=== PATIENT | male | born 1985 | race Caucasian/White ===

== ENCOUNTER 2016-08-29 10:50 | Inpatient (IN) | payer OTHER ==
[~2016-08-29] VITALS: Ht 185.4 cm; Wt 94.3 kg
--- NOTE | ~2016-08-29 | EKG ---
[place], [place] ELECTROCARDIOGRAM REPORT NAME: MAICO ELLIS UNIT #: [id number] ROOM: [facility] DOCTOR: RUTHY DE LOS SANTOS MD BIRTHDATE: [birth year] DOS: 08/29/2016 TIME: 1136 hours. Normal sinus rhythm at 68 beats per minute. The tracing is normal. No previous tracing is available for comparison. RUTHY DE LOS SANTOS MD CM:EKGRPT:ELECTROCARDIOGRAM REPORT [id number] RUTHY DE LOS SANTOS MD
--- NOTE | ~2016-08-29 | WRIGHTHP ---
[place], [place] PATIENT HISTORY AND PHYSICAL EXAM NAME: MAICO ELLIS UNIT #: [id number] ROOM: 530 DOCTOR: PHUC BARRERA DO BIRTHDATE: [birth year] DOS: 08/29/2016 PRIMARY CARE PHYSICIAN: None. The patient was seen and evaluated with the resident on 08/29/2016. Please see the resident's note for further details. ASSESSMENT: 1. Opiate dependence with acute withdrawal. 2. IV heroin abuse. 3. Elevated LFTs. 4. Tobacco abuse. 5. Cocaine abuse. 6. Recent spontaneous pneumothorax of the left lung, treated at [facility] approximately one month ago. PLAN: Continue medical stabilization with the current protocol. Continue supportive care. A hepatitis panel will be ordered for evaluation of his elevated LFTs. PHUC BARRERA DO CM:HISPHYS:PATIENT HISTORY AND PHYSICAL EXAMINATION [id number] PHUC BARRERA DO 08/29/16 1756 interface
[2016-08-29 11:18] VITALS: BP 124/81
[2016-08-29 11:34] LABS: BASO # 0.1 10*3/uL (0.0-0.1); BASO % 0.7 % (0.0-1.0); EOS # 0.2 10*3/uL (0.0-0.4); EOS % 2.1 % (1.0-4.0); HEMATOCRIT 46.9 % (42.0-52.0); HEMOGLOBIN 15.4 g/dl (14.0-18.0); LYMPH # 2.2 10*3/uL (1.3-4.4); LYMPH % 27.4 % (27.0-41.0); MEAN CELL VOLUME 82.9 fl (80.0-94.0); MEAN CORPUSCULAR HGB 27.2 pg (27.0-31.0); MEAN CORPUSCULAR HGB CONC 32.8 g/dl (33.0-37.0); MEAN PLATELET VOLUME 9.5 fl (9.6-12.3); MONO # 0.5 10*3/uL (0.1-1.0); MONO % 6.7 % (3.0-9.0); NEUT % 62.9 % (47.0-73.0); PLATELET COUNT AUTOMATED 268 10*3/uL (130-400); RED BLOOD COUNT 5.66 10*6/uL (4.50-5.90); RED CELL DISTRI WIDTH 13.7 % (0-14.5)
[2016-08-29 12:00] LABS: ALBUMIN 4.1 gm/dl (3.1-4.5); ALKALINE PHOSPHATASE 95 U/L (45-117); BILIRUBIN, TOTAL 0.7 mg/dl (0.2-1.0); BUN 6 mg/dl (7-24); CARBON DIOXIDE 26 mmol/L (21-32); CHLORIDE 105 mmol/L (98-107); EST GLOM FILT AFRICAN AMERICAN > 60 ml/min; GLUCOSE 88 mg/dL (65-99); POTASSIUM 3.6 mmol/L (3.5-5.1); SGOT/AST 76 IU/L (3-35); SGPT/ALT 166 U/L (12-78); SODIUM 141 mmol/L (136-145); TOTAL PROTEIN 7.9 gm/dL (6.4-8.2)
[2016-08-29 12:14] LABS: BILIRUBIN NEGATIVE (NEGATIVE); BLOOD TRACE-LYSED (NEGATIVE); CLARITY CLEAR (CLEAR); COLOR YELLOW (YELLOW); GLUCOSE NEGATIVE (NEGATIVE); KETONE 2+ (NEGATIVE); LEUKO ESTERASE NEGATIVE (NEGATIVE); NITRITE NEGATIVE (NEGATIVE); PROTEIN NEGATIVE (NEGATIVE); SPECIFIC GRAVITY <= 1.005 (1.005-1.030)
[2016-08-29 12:20] LABS: MUCOUS 1+; RBC 0-2 rbc/hpf (0-2); URINE REFLEX COMMENT NO (NO)
[2016-08-29 12:22] LABS: URINE AMPHETAMINES < 1000 (1000ng/ml); URINE BARBITURATES < 200 (200ng/ml); URINE COCAINE > 300 (300ng/ml)
[2016-08-29 15:07] VITALS: BP 123/79
[2016-08-29 16:00] VITALS: BP 117/64
[2016-08-29 20:00] VITALS: BP 113/63
[2016-08-30] VITALS: BP 98/58
[2016-08-30 04:00] VITALS: BP 96/58
[2016-08-30 07:22] LABS: ALBUMIN 3.4 gm/dl (3.1-4.5); ALKALINE PHOSPHATASE 87 U/L (45-117); BILIRUBIN, TOTAL 0.3 mg/dl (0.2-1.0); BUN 9 mg/dl (7-24); CARBON DIOXIDE 26 mmol/L (21-32); CHLORIDE 110 mmol/L (98-107); EST GLOM FILT AFRICAN AMERICAN > 60 ml/min; GLUCOSE 97 mg/dL (65-99); MAGNESIUM 2.3 mg/dL (1.5-2.1); SGOT/AST 48 IU/L (3-35); SGPT/ALT 109 U/L (12-78); SODIUM 146 mmol/L (136-145); TOTAL PROTEIN 6.8 gm/dL (6.4-8.2)
[2016-08-30 08:00] VITALS: BP 102/56
[2016-08-30 16:00] VITALS: BP 102/52
[2016-08-30 20:00] VITALS: BP 101/56
[2016-08-31] VITALS: BP 105/61
[2016-08-31 08:00] VITALS: BP 100/62
[2016-08-31 12:00] VITALS: BP 110/62
[2016-08-31 16:00] VITALS: BP 131/66
[2016-08-31 20:00] VITALS: BP 136/69
[2016-09-01] VITALS: BP 90/51
[2016-09-01 06:22] LABS: BASO # 0.1 10*3/uL (0.0-0.1); EOS # 0.4 10*3/uL (0.0-0.4); EOS % 4.3 % (1.0-4.0); HEMATOCRIT 39.7 % (42.0-52.0); HEMOGLOBIN 13.1 g/dl (14.0-18.0); LYMPH # 4.5 10*3/uL (1.3-4.4); LYMPH % 55.1 % (27.0-41.0); MEAN CELL VOLUME 82.9 fl (80.0-94.0); MEAN CORPUSCULAR HGB 27.3 pg (27.0-31.0); MEAN PLATELET VOLUME 10.3 fl (9.6-12.3); MONO # 0.6 10*3/uL (0.1-1.0); MONO % 7.3 % (3.0-9.0); NEUT # 2.6 10*3/uL (2.3-7.9); NEUT % 31.8 % (47.0-73.0); NUCLEATED RED BLOOD CELL 0.2 % (0.0-0.0); PLATELET COUNT AUTOMATED 222 10*3/uL (130-400); RED BLOOD COUNT 4.79 10*6/uL (4.50-5.90); RED CELL DISTRI WIDTH 13.7 % (0-14.5); WHITE BLOOD COUNT 8.1 10*3/uL (4.8-10.8)
[2016-09-01 08:00] VITALS: BP 96/56
[2016-09-01] MEDS ORDERED: ZOFRAN 4 MG ED2 TAB PO (11:39)
[2016-09-01] MEDS ORDERED: ATARAX,VISTARIL50 MG PO (11:39)
[2016-09-01] MEDS ORDERED: CARBIDOPA/LEVOD1 TA1 PO (11:39)
[2016-09-01 12:00] VITALS: BP 114/80
[2016-09-03 11:05] LABS: HEPATITIS C VIRUS ANTIBODY >11.0 s/co (0.0-0.9)
== END 2016-09-01 14:00 | disposition home or self-care (01) | DRG 897 ==
LOC: ED 10:50 → 5E 12:07 → EDHOLD 12:07 → 5E 13:27
PROVIDERS: Emergency Medicine; Nurse Practitioner Family
DX: F11.23 Opioid dependence with withdrawal (principal); E44.1 Mild protein-calorie malnutrition; R74.8 Abnormal levels of other serum enzymes; R82.4 Acetonuria; F17.210 Nicotine dependence, cigarettes, uncomplicated; F14.10 Cocaine abuse, uncomplicated; F15.10 Other stimulant abuse, uncomplicated; Z68.27 Body mass index [BMI] 27.0-27.9, adult; Z98.890 Other specified postprocedural states; Z82.49 Family history of ischemic heart disease and other diseases of the circulatory system; Z83.3 Family history of diabetes mellitus; Z80.1 Family history of malignant neoplasm of trachea, bronchus and lung